=== PATIENT | male | born 1965 | race African-American/Black ===

== ENCOUNTER 2016-08-03 13:48 | Emergency (ER) | payer OTHER ==
[2016-08-03 14:36] VITALS: BP 125/74
[2016-08-03] MEDS ORDERED: Ketorolac INJ* 60 MG/2 ML VIAL IM ONE (15:14)
[2016-08-03] MEDS ORDERED: Ibuprofen TAB* 800 MG PO ONE (15:23)
[2016-08-03] MEDS ORDERED: Ibuprofen TAB* 400 MG PO ONE (15:27)
--- NOTE | 2016-08-03 15:27 | UC ---
Back Pain HPI - HPI Summary HPI Summary: 51 y/o male presents to the urgent care c/o neck and lower back pain since this morning when he was trying to reach up in the closet and suddenly his neck and back locked up. Pain has been 10/10 since then. He reports he has Hx of Spinal stenosis. But he hasn't felt this pain before. He states he has a Headache that is also 10/10 w/o any visual disturbance. Back pain is throbbing and radiating to the hip. He also felt numbness and tingling of both hands this morning which has now stopped. Pt denies fever, SOB, chest pain, N/V/D, urinary symptoms or saddle anesthesias. - History of Current Complaint Chief Complaint: UCBackPain Stated Complaint: BACK PAIN Time Seen by Provider: 08/03/16 15:01 Hx Obtained From: Patient Onset/Duration: Sudden Onset, Lasting Hours, Still Present Timing: Constant Severity Initially: Moderate Severity Currently: Severe Pain Intensity: 10 Pain Scale Used: 0-10 Numeric Back Pain: Radiates To - both hips Character: Throbbing Aggravating: Movement, Lifting, Bending Alleviating: Rest Associated Signs And Symptoms: Positive: Tingling - in the hands this morning which has stopped, Pain with Weight Bearing. Negative: Swelling, Fever, Weakness, Bladder Incontinence, Bowel Incontinence Related History: Similar Episode Dx As - in 2014 - Risk Factors AAA Risk Factors: Negative TAD Risk Factors: Negative Cauda Equina Risk Factors: Negative Epidural Abscess Risk Factors: Negative - Allergies/Home Medications Allergies/Adverse Reactions: Allergies Allergy/AdvReac Type Severity Reaction Status Date / Time environmental Allergy Congestion Uncoded 08/03/16 14:36 PMH/Surg Hx/FS Hx/Imm Hx Previously Healthy: Yes Cardiovascular History: Hypertension - Surgical History Surgical History: Yes Surgery Procedure, Year, and Place: left wrist cyst. left shoulder repair rotator cuff, 03/2014, [facility] - Family History Known Family History: Positive: Hypertension - Social History Occupation: Employed Full-time Lives: With Family Alcohol Use: Rare Substance Use Type: None Smoking Status (MU): Heavy Every Day Tobacco Smoker Type: Cigarettes Amount Used/How Often: 1/2 ppd Length of Time of Smoking/Using Tobacco: 15 years Have You Smoked in the Last Year: Yes Review of Systems Constitutional: Negative Skin: Negative Eyes: Negative ENT: Negative Respiratory: Negative Cardiovascular: Negative Gastrointestinal: Negative Genitourinary: Negative Motor: Decreased ROM - of lower back due to pain Neurovascular: Negative Musculoskeletal: Other: - Lower back pain and neck pain Neurological: Headache - 11/14 without any visual disturbance. Psychological: Negative All Other Systems Reviewed And Are Negative: Yes Physical Exam Triage Information Reviewed: Yes Appearance: Well-Appearing, Well-Nourished - sitting on a chair with mild pain distress, Thin Vital Signs: Initial Vital Signs Temp 98.7 F 08/03/16 14:32 Pulse 90 08/03/16 14:32 Resp 18 08/03/16 14:32 BP 125/74 08/03/16 14:32 Pulse Ox 100 08/03/16 14:32 Vital Signs Reviewed: Yes Eye Exam: Normal Eyes: Positive: Conjunctiva Clear - PERRLA, EOMI, fundi grossly normal ENT Exam: Normal ENT: Positive: Normal ENT inspection, Hearing grossly normal, Pharynx normal, TMs normal Dental Exam: Normal Neck: Positive: Supple, No Lymphadenopathy, Tenderness @ - mild tenderness on deep palpation at the level of C5-C6, no erythema or swelling observed. Decrease ROM on flexion and extension of neck. Positive pulses, capillary refill and sensation, and FROM over both upper extremities. Respiratory Exam: Normal Respiratory: Positive: Chest non-tender, Lungs clear, Normal breath sounds Cardiovascular Exam: Normal Cardiovascular: Positive: RRR, No Murmur, Pulses Normal, Brisk Capillary Refill Abdominal Exam: Normal Abdomen Description: Positive: Nontender, No Organomegaly, Soft. Negative: CVA Tenderness (R), CVA Tenderness (L) Bowel Sounds: Positive: Present Musculoskeletal: Positive: Strength Intact, ROM Limited @ - Back: normal back inspection, no lordosis, scoliosis or kyphosis observed. Positive tenderness on deep palpation over the paraspinal muscles at the level of L5-S1, no swelling or erythema observe. Decrease ROM due to pain. Postive RT Leg raise test. Negative on the LF leg. Positve capillary refill, pulses and sensation over the lower extremities. Patient ambulating well on heal and toes. 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 Neurological Exam: Normal Psychological Exam: Normal Skin Exam: Normal Back Pain Course/Dx - Course Course Of Treatment: 51 y/o male presents to the urgent care c/o neck and lower back pain since this morning when he was trying to reach up in the closet and suddenly his neck and back locked up. Hx obtained. Pain is 10/10. Pt offered a Toradol injection. Then when nurse was going to administer IM inj, Pt declined since he mentioned he is afraid of needles. Pt was given Ibuprofen 800mg PO to alleviate pain. -PE abnormal findings:Back: normal back inspection , no lordosis, scoliosis or kyphosis observed. Positive tenderness on deep palpation over the paraspinal muscles at the level of L5-S1, no swelling or erythema observe. Decrease ROM due to pain. Postive RT Leg raise test. Negative on the LF leg. Positve capillary refill, pulses and sensation over the lower extremities. Patient ambulating well on heal and toes. 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 Pt with Hx of Spinal stenosis since 2014. Cervical and lumbar Xrays ordered. While in the X-ray room. Pt only allowed cervical xrays and decided to return to the room. Pt requested medications to be sent to the pharmacy to alleviate his symptoms. Cervical Xray impression: Mild degenerative changes of cervical spine and lost of the intervertebral disc height at C5-6 and anterior osteophyte at C4-5. Pr Rx Medrol dose sweta, flexeril PO and Iburpofen 800mg PO prn to alleviate symptoms, Pt strongly advised if symptoms do not improve to go to the ER or f/u with his PCP Dr Tim or return to the [facility] since they have managed his spinal stenosis for further evaluation and treatment. Pt understood and agreed. Patient walked and exit the with goos steady ambulation w/o any aid. - Differential Dx/Diagnosis Differential Diagnosis/HQI/PQRI: Arthritis, Compressive Cord Syndrome, Herniated Disc, Strain, Sprain Provider Diagnoses: lower back pain, neck pain Discharge - Discharge Plan Condition: Stable Disposition: HOME Prescriptions: Cyclobenzaprine TAB* [Flexeril 10 MG TAB*] 10 mg PO TID PRN #21 tab PRN Reason: Spasms Ibuprofen TAB* [Motrin TAB* 800 MG] 800 mg PO Q6H PRN #30 tab PRN Reason: Pain Methylprednisolone [Medrol Dosepak 4 MG*] 4 mg PO .SEE SWETA INSTRUCTION #1 tab Patient Education Materials: Acute Low Back Pain (ED), Lower Back Exercises (ED ), Cervical Disc Herniation (ED) Referrals: Ollie Allen MD [Primary Care Provider] - 1 Week Additional Instructions: Please take medication as directed to alleviate symptoms. Wear a back support and avoid strenuous exercise. rest. f/u with your PCP if symptoms persists or return to the urgent care for further evaluation and treatment.
--- NOTE | 2016-08-03 16:14 | RAD ---
INDICATION: Chronic neck and back pain COMPARISON: None. TECHNIQUE: 3 views of the cervical spine were obtained. FINDINGS: Mild degenerative changes of the cervical spine include loss of intervertebral disc height most severely affecting C5/C6. There is a mild degree of anterior marginal osteophyte formation along the anterior margin of the intervertebral discs at C4/C5 and C5/C6. The vertebral bodies and facet joints are otherwise appropriately aligned. There is no prevertebral soft tissue swelling. IMPRESSION: Mild degenerative changes of the cervical spine as described above. If the patient's symptoms persist, follow-up imaging is recommended.
== END 2016-08-03 16:17 | disposition home or self-care (01) ==
LOC: UCCORT 13:48
DX: M54.5 Low back pain (principal); F17.210 Nicotine dependence, cigarettes, uncomplicated; M54.2 Cervicalgia
CPT/HCPCS: 72040; 99212; A9270-GY; G0463; J1885